=== PATIENT | female | born 1995 | race Caucasian/White ===

== ENCOUNTER 2016-12-02 11:20 | Inpatient (IN) ==
[2016-12-02] MEDS: LACTATED RINGERS 1,000 ML IV SCH ×3 (11:45→19:11)
[2016-12-02] MEDS ORDERED: ONDANSETRON 4 MG/2 ML VIAL IV PRN ×2 (12:19→22:17)
[2016-12-02] MEDS ORDERED: BUTORPHANOL 2 MG/ML VIAL IV PRN (12:19)
[2016-12-02] MEDS ORDERED: OXYTOCIN/LR 20 UNIT/1,000 ML BAG IV SCH (12:30)
[2016-12-02 12:46] LABS: Basophils # 0.1 10*3/uL (0.0-0.2); Basophils % 0.5 % (0.0-0.8); Eosinophils # 0.1 10*3/uL (0.0-0.87); Eosinophils % 0.5 % (0.00-10.9); Hematocrit 37.2 VOL% (35.7-47.0); Hemoglobin 12.5 GM/DL (12.0-16.0); Immature Granulocytes % 0.4 %; Immature Granulocytes Absolute 0.04 #; Lymphocytes # 1.6 10*3/uL (1.4-4.0); Lymphocytes % 15.5 % (21.3-54.2); Mean Corpuscular HGB Conc 33.6 GM/DL (32-36); Mean Corpuscular Hemoglobin 29 PG (27-34); Mean Corpuscular Volume 86.1 FL (87-102); Mean Platelet Volume 13.9 FL (9.6-12.0); Monocytes # 0.9 10*3/uL (0.11-0.8); Monocytes % 8.2 % (1.7-12.7); Neutrophils # 7.8 10*3/uL (1.4-7.4); Neutrophils % 74.9 % (38.7-73.9); Platelet Count 121 T/CUMM (130-400); Red Blood Count 4.32 MC/CUMM (3.8-5.5); Red Cell Distribution Width 13.5 % (9.3-17.3); White Blood Count 10.4 T/CUMM (4-12)
[2016-12-02 13:25] LABS: Albumin 2.7 G/DL (3.4-5.0); Bilirubin,Total 0.5 MG/DL (0.2-1.0); Calcium 9.2 MG/DL (8.5-10.1); Osmolality,Calculated 271.7 MOS/KG (273-304); Potassium 4.2 MMOL/L (3.5-5.1); Total Protein 7.6 G/DL (6.4-8.3)
[2016-12-02] MEDS ORDERED: diphenhydrAMINE 50 MG/1 ML VIAL IV PRN ×2 (14:18)
[2016-12-02] MEDS ORDERED: hydrOXYzine HCL 25 MG/1 ML VIAL IM PRN (14:18)
[2016-12-02] MEDS ORDERED: ePHEDrine 50 MG/ML AMP IV PRN (14:18)
[2016-12-02] MEDS ORDERED: PROMETHAZINE 25 MG/1 ML VIAL IM ONE (14:18)
[2016-12-02] MEDS ORDERED: LACTATED RINGERS 1,000 ML IV ONE (14:20)
[2016-12-02] MEDS ORDERED: CITRIC ACID/SODIUM CITRATE 30 ML UDCUP PO ONE (14:20)
[2016-12-02] MEDS ORDERED: FAMOTIDINE 20 MG/2 ML VIAL IV ONE (14:20)
[2016-12-02] MEDS: fentaNYL 2 MCG/ROPIV 0.2% EPID 150 ML EPIDURAL SCH (15:08)
--- NOTE | 2016-12-02 15:10 | OB/GYN History & Physical ---
History of Present Illness History of present illness: Ms. Arriaga is a 21 year old female Pt. 21y/o @ 38+6 wks presents to labor and delivery from the clinic in active labor. Pt. states she has been boris since this weekend however it has been getting progressively worse. Pt. denies any vaginal bleeding, decreased movement or leakage of fluid. Allergies Allergy/AdvReac Type Severity Reaction Status Date / Time No Known Allergies Allergy Verified 12/02/16 12:19 12 point system: reviewed and no additional remarkable complaints except as stated Exam IT NETWORK ADMINISTRATOR - Constitutional General appearance: mild distress - Antepartum / Post Antepartum Exam Cervix - Dilatation: 4cm Effacement: 50% Station: -2 Rupture: intact membranes Heart Rate: reactive, category 1 tracing, + accelerations, toco irregular contractions - Respiratory Respiratory exam: Present: clear to auscultation bilaterally - Cardiovascular Cardiovascular exam: Present: regular rate and rhythm - GI/Abdominal GI/Abdominal exam: Present: normal bowel sounds - Extremities Exam Extremities exam: Present: normal inspection - Psychiatric Psychiatric exam: Present: normal affect, normal mood Assessment and Plan (1) Active labor at term Status: Acute Assessment and plan: 1. admit to labor and delivery 2. ivfs 3. labs 4. continuous external monitoring 5. anesthesia consult 6. AROM- clear fluid, IUPC/ISE placed Current Visit: Yes Results - Labs CBC & BMP: 12/02/16 12:28 12/02/16 12:28 Quality Measures - VTE Contraindication to Pharmacological VTE Prophylaxis: Clinical assessment deems Pt at low risk, no prophalaxis needed
--- NOTE | 2016-12-02 15:16 | Operative Note ---
Date of procedure: 12/02/16 Pre-op diagnosis: 21y/o @ 38+6 wks in active labor Post-op diagnosis: same Procedure: Findings: male , time 2137, weight 1ug40em, nuchal cord x 1, Apgars 8/9 Pt. 10cm dilated 100% effaced + 3 station and pushing in the McRobert's position. FRH in the 90s and maternal pushing effort is poor. Pt. explained that I was going to place a kiwi vacuum to assist in the delivery of the head. The kiwi was then placed appropriately over the scalp and the appropriate suction applied. The patient was then instructed to push with the contraction while gentle but steady traction was applied. The Kiwi popped off x 1 and then RML episiotomy was quickly made and kiwi reapplied with the same techinique as previously performed and the head was delivered atraumatically. Tight nuchal cord x 1 was reduced. The Kiwi was removed and again the patient was told to push however the oncoming shoulder did not deliver with ease. My tourist information assistant was then instructed to get into position to give suprapubic pressure and simultaneously while the patient pushed the anterior shoulder delivered with the entirety of the without complications. The placenta delivered intact, 3 vessel cord. Episiotomy repaired with 2.0 vicryl in a running interlocked stitch with excellent hemostasis and the skin with 3.0 chromic in a running stitch. There was excellent hemostasis. No cervical lacerations. EBL 300cc. Interval between delivery of the head and the entire delivery of the fetus was 20 seconds. Anesthesia: epidural Surgeon / Physician: Marley Jackson Estimated blood loss: other (300cc) Specimens: other (placenta, cord, membranes) Condition: stable Disposition: floor Results - Labs CBC & BMP: 12/02/16 12:28 12/02/16 12:28 Discharge Plan - Discharge Medications No Action Vits #90/Iron Fum/FA [ Formula Tablet] 1 tablet PO DAILY Ferrous Sulfate 1 tablet PO DAILY - Follow Up or Referral - Forms/Instructions
[2016-12-02 17:18] LABS: Apearance,Urine CLEAR (Clear); Bacteria,Urine Occasional /HPF (Few); Bilirubin,Urine Negative (Negative); Blood, Urine Negative (Negative); Glucose,Urine (UA) Negative (Negative); Ketones,Urine 20 mg/dL (Negative); Mucus,Urine Occasional /LPF (Occasional); Nitrite,Urine Negative (Negative); Protein,Urine Negative; Urine Color Yellow (Yellow); Urine Specific Gravity 1.015 (1.001-1.035); Urine Urobilinogen < 2.0 EU/DL (0.2-1.0); WBC,Urine 1 /HPF (0-6)
[2016-12-02] MEDS ORDERED: miSOPROStol 200 MCG TABLET ONE (20:48)
[2016-12-02 22:08] LABS: Cord Venous Blood HCO3 20.5 MMOL/L; Cord Venous Blood PCO2 41.4 MMHG; Cord Venous Blood PO2 29.2
[2016-12-02] MEDS ORDERED: RHO(D) IMMUNE GLOBULIN 300 MCG SYRINGE IM ONE (22:17)
[2016-12-02] MEDS ORDERED: BISACODYL 10 MG SUPP RECTAL PRN (22:17)
[2016-12-02] MEDS ORDERED: WITCH HAZEL PADS 100/JAR TOP PRN (22:17)
[2016-12-02] MEDS ORDERED: BENZOCAINE 20%/MENTHOL 0.5% SPRAY 56 GM CAN TOP PRN (22:17)
[2016-12-02] MEDS ORDERED: DIPH/TET/ACEL PERT BOOSTER VACCINE 0.5 ML VIAL IM ONE (22:17)
[2016-12-02] MEDS ORDERED: LANOLIN 50% CREAM 0.3 OZ TUBE TOP PRN (22:17)
[2016-12-02] MEDS ORDERED: HYDROCORTISONE 2.5% RECTAL CREAM 30 GM TUBE TOP PRN (22:17)
[2016-12-02] MEDS ORDERED: MEASLES/MUMPS/RUBELLA VACCINE 0.5 ML VIAL SUBCUT ONE (22:17)
[2016-12-02] MEDS ORDERED: ACETAMINOPHEN 325 MG TABLET PO PRN (22:17)
[2016-12-02] MEDS ORDERED: OXYTOCIN/LR 20 UNIT/1,000 ML BAG IV ONE (22:17)
[2016-12-03] MEDS: IBUPROFEN 800 MG TABLET PO PRN ×4 (01:34→21:56)
[2016-12-03] MEDS: oxyCODONE/ACETAMINOPHEN 5-325 MG TABLET PO PRN ×4 (01:35→21:56)
[2016-12-03 05:21] LABS: Basophils # 0.1 10*3/uL (0.0-0.2); Basophils % 0.5 % (0.0-0.8); Eosinophils % 0.2 % (0.00-10.9); Hematocrit 34.5 VOL% (35.7-47.0); Hemoglobin 11.3 GM/DL (12.0-16.0); Immature Granulocytes % 0.3 %; Immature Granulocytes Absolute 0.05 #; Lymphocytes % 12.9 % (21.3-54.2); Mean Corpuscular HGB Conc 32.8 GM/DL (32-36); Mean Corpuscular Hemoglobin 28 PG (27-34); Mean Corpuscular Volume 86.3 FL (87-102); Mean Platelet Volume 13.9 FL (9.6-12.0); Monocytes # 1.2 10*3/uL (0.11-0.8); Monocytes % 7.8 % (1.7-12.7); Neutrophils % 78.3 % (38.7-73.9); Platelet Count 105 T/CUMM (130-400); Red Cell Distribution Width 13.2 % (9.3-17.3); White Blood Count 15.3 T/CUMM (4-12)
--- NOTE | 2016-12-03 06:41 | Anesthesia Post-Op ---
Anesthesia Post OP - Post Ansesthetic Evaluation Patient seen in post op: Yes Resp: within normal limits CV: within normal limits Mental: within normal limits Temp: within normal limits [id number]: within normal limits Nausea and Vomiting: within normal limits Pain: within normal limits
[2016-12-03] MEDS: LACTATED RINGERS 1,000 ML IV SCH ×4 (07:26→07:28)
[2016-12-03] MEDS: fentaNYL 2 MCG/ROPIV 0.2% EPID 150 ML EPIDURAL SCH (07:27)
[2016-12-03] MEDS: DOCUSATE SODIUM 100 MG CAPSULE PO SCH ×2 (08:13→21:56)
--- NOTE | 2016-12-03 13:56 | OB/GYN Progress Note ---
Assessment and Plan (1) Active labor at term Status: Acute Assessment and plan: 1. admit to labor and delivery 2. ivfs 3. labs 4. continuous external monitoring 5. anesthesia consult 6. AROM- clear fluid, IUPC/ISE placed Current Visit: Yes (2) s/p kiwi assisted vaginal delivery Status: Acute Assessment and plan: 1. pt. doing well, discharge planning for am Current Visit: Yes BEHAVIORAL HEALTH PROFESSIONAL - PN: Subj Interval history: Pt. seen by bedside, denies any complaints. no headaches or blurred vision. no chest pain or shortness of breath. lochia normal . no fever or chills. Exam BEHAVIORAL HEALTH PROFESSIONAL - Constitutional Vitals: Vital Signs Temp Pulse Resp BP Pulse Ox 12/03/16 11:10 96.7 F L 90 20 111/72 12/03/16 02:00 98.0 F 12/02/16 23:30 97.8 F 12/02/16 23:00 97.8 F 12/02/16 21:55 97.8 F 12/02/16 19:20 97.6 F 12/02/16 16:00 97.8 F 95 H 18 111/78 100 General appearance: no acute distress - Respiratory Respiratory exam: Present: clear to auscultation bilaterally - Cardiovascular Cardiovascular exam: Present: regular rate and rhythm - GI/Abdominal GI/Abdominal exam: Present: normal bowel sounds - Extremities Exam Extremities exam: Present: normal inspection - Psychiatric Psychiatric exam: Present: normal affect, normal mood Results - Labs CBC & BMP: 12/03/16 04:41 12/02/16 12:28
--- NOTE | 2016-12-03 13:59 | Discharge Summary ---
Hospital Course - Hospital Course Hospital Course: Pt. admitted in active labor and labor augmented with pitocin. Pt. progressed to 10cm 100% effaced + 3 station however due to fhr tracing in the 90s and poor maternal pushing effort, kiwi vacuum placed and head delivered however oncoming shoulders did not delivery-shoulder dystocia. Pt. already placed in Mariela position. Suprapubic pressure applied and infant delivered. Pt. s/p deliver care and status uneventful and charged home on ppd#2 Diagnosis - Discharge Diagnosis (1) Active labor at term Status: Acute (2) s/p kiwi assisted vaginal delivery Status: Acute Discharge Plan - Discharge Data Disposition: Disch To Home/Self Care Condition at Discharge: Stable Discharge Diet: advance to your usual diet Activity: no lifting Hygiene: may shower, keep area(s) dry Contact your physician if you experience:: fever over 101, Difficulty voiding, Redness or swelling, Nausea/Vomiting, Shortness of breath, Bleeding, pain uncontrolled by pain medications - Discharge Medications No Action Vits #90/Iron Fum/FA [ Formula Tablet] 1 tablet PO DAILY Ferrous Sulfate 1 tablet PO DAILY - Follow Up or Referral Follow Up: Marley Jackson MD [Physician] - - Forms/Instructions Additional Discharge Instructions: Appt with Dr. Jackson on 12/17/16 @ 11am Exam - Constitutional Vitals: Period Temp Pulse Resp BP Sys/Us Pulse Ox Last 24 Hr 96.7 F-98.0 F 90-95 18-20 111-111/72-78 100 General appearance: no acute distress - Respiratory Respiratory exam: Present: clear to auscultation bilaterally - Cardiovascular Cardiovascular exam: Present: regular rate and rhythm - GI/Abdominal GI/Abdominal exam: Present: normal bowel sounds - Extremities Exam Extremities exam: Present: normal inspection - Psychiatric Psychiatric exam: Present: normal affect, normal mood Discharge Results Labs on day of discharge: Labs from last 24 hours 12/03/16 12/02/16 12/02/16 04:41 21:37 21:37 WBC 15.3 H D RBC 4.00 Hgb 11.3 L Hct 34.5 L MCV 86.3 L MCH 28 MCHC 32.8 RDW 13.2 Plt Count 105 L MPV 13.9 H Neut % (Auto) 78.3 H Lymph % (Auto) 12.9 L [place] % (Auto) 7.8 Eos % (Auto) 0.2 Baso % (Auto) 0.5 Neut # (Auto) 12.0 H Lymph # (Auto) 2.0 [place] # (Auto) 1.2 H Eos # (Auto) 0.0 Baso # (Auto) 0.1 Immature Gran % 0.3 Nucleated RBC % 0.0 Immature Gran # 0.05 Nucleated RBCs # 0.00 Immature Plt Fraction 18.2 H Cord ABG pH 7.178 L Cord ABG pCO2 70.6 Cord ABG pO2 12.6 Cord ABG HCO3 18.0 Cord ABG Total CO2 23.5 Cord ABG Base Excess -5.5 Cord VBG pH 7.338 Cord VBG pCO2 41.4 Cord VBG pO2 29.2 Cord VBG HCO3 20.5 Cord VBG Total CO2 18.6 Cord VBG Base Excess -3.6 Urine Color Urine Appearance Urine pH Ur Specific [place] Urine Protein Urine Glucose (UA) Urine Ketones Urine Blood Urine Nitrate Urine Bilirubin Urine Urobilinogen Urine Leukocytes Urine WBC Urine Bacteria Urine Mucus Ur Culture Indicated? 12/02/16 16:35 WBC RBC Hgb Hct MCV MCH MCHC RDW Plt Count MPV Neut % (Auto) Lymph % (Auto) [place] % (Auto) Eos % (Auto) Baso % (Auto) Neut # (Auto) Lymph # (Auto) [place] # (Auto) Eos # (Auto) Baso # (Auto) Immature Gran % Nucleated RBC % Immature Gran # Nucleated RBCs # Immature Plt Fraction Cord ABG pH Cord ABG pCO2 Cord ABG pO2 Cord ABG HCO3 Cord ABG Total CO2 Cord ABG Base Excess Cord VBG pH Cord VBG pCO2 Cord VBG pO2 Cord VBG HCO3 Cord VBG Total CO2 Cord VBG Base Excess Urine Color Yellow Urine Appearance Clear Urine pH 6.0 Ur Specific [place] 1.015 Urine Protein Negative Urine Glucose (UA) Negative Urine Ketones 20 Urine Blood Negative Urine Nitrate Negative Urine Bilirubin Negative Urine Urobilinogen < 2.0 H Urine Leukocytes Negative Urine WBC 1 Urine Bacteria Occasional Urine Mucus Occasional Ur Culture Indicated? Not indicated DS: Provider Date of admission: 12/02/16 12:19 Primary care physician: Fauzia Joy Attending physician on admission: Marley Jackson MD Consults: 12/02/16 12:19 Consult to Anesthesiology [CONS] Routine Consulting Provider: Reason for Anesthesiology: Epidural Consult Comment: Epidural for pain managment 12/02/16 22:17 Consult to Bicycle Subassembler [CONS] Routine Consult Bicycle Subassembler: Breast Feeding Discharging clinician: Marley Jackson MD
[2016-12-04 07:12] VITALS: BP 109/62
[2016-12-04] MEDS: DOCUSATE SODIUM 100 MG CAPSULE PO SCH (09:52)
[2016-12-04] MEDS: IBUPROFEN 800 MG TABLET PO PRN (09:56)
[2016-12-04] MEDS: oxyCODONE/ACETAMINOPHEN 5-325 MG TABLET PO PRN (09:57)
== END 2016-12-04 12:40 | disposition home or self-care (01) | DRG 775 ==
LOC: N.LDOUT 11:20 → N.LD 11:27 → N.OB 12-03 11:19
PROVIDERS: ADMIT Obstetrics & Gynecology; ATTEND Obstetrics & Gynecology